=== PATIENT | female | born 1980 | race Hispanic/Latino ===

== ENCOUNTER 2019-02-09 17:58 | Emergency (ER) | payer BC ==
[~2019-02-09] VITALS: Ht 149.9 cm; Wt 59.0 kg
--- OUTSIDE RECORDS SUMMARY | 2019-02-09 18:00 | XMS REPORT | Clinical Summary ---
Author Author [facility] Address Unknown Phone Unavailable Care Team Providers Care Chute Greaser Name Role Phone Gabriela Chew MD PCP Allergies Comments Active Allergy Reactions Severity Noted Date Shellfish Containing 11/20/2017 Products Shellfish Derived 11/20/2017 Shrimp Anaphylaxis High 11/20/2017 Medications No known medications Active Problems No known active problems Immunizations Name Dates Previously Given Next Due Influenza Trivalent 07/26/2017 Tdap 08/15/2011 Family History Medical History Relation Name Comments No Known Problems Father No Known Problems Mother Relation Name Status Comments Father Alive Mother Alive Social History Date Tobacco Use Types Packs/Day Years Used Never Smoker Smokeless Tobacco: Never Used Alcohol Use Drinks/Week oz/Week Comments Yes 1 Glasses of 0.6 monthly wine Sex Assigned at Date Recorded Not on file Industry Job Start Date Occupation Not on file Not on file Not on file Travel End Travel History Travel Start No recent travel history available. Last Filed Vital Signs Not on file Plan of Treatment Health Maintenance Due Date Last Done Comments CERVICAL CANCER SCREENING 2002 INFLUENZA VACCINE 04/25/2019 07/26/2017 Results Not on fileafter 02/08/2018 Insurance Payer Benefit Subscriber ID Type Phone Address Plan / Group BCBS BCBS xxxxxxxxxxxx PPO CHOICE PPO/[employer] PPO Advance Directives Patient has advance care planning documents on file. For more information, nuvia iverson [facility] [address] [place] [phone]
[2019-02-09] MEDS ORDERED: ONDANSETRON HCL INJ 2MG/ML 2ML 2 MG/ML VIAL IV NR (18:06)
[2019-02-09] MEDS ORDERED: SODIUM CHLORIDE 0.9% 1000ML 1,000 ML IV SCH (18:15)
[2019-02-09] MEDS ORDERED: KETOROLAC TROMETHAMINE 30 MG/ML VIAL IV NR (18:15)
[2019-02-09] MEDS ORDERED: FENTANYL CITRATE/PF 100MCG/2 ML INJ IV NR (18:15)
--- NOTE | 2019-02-09 18:29 | NUR ---
[facility] CALLED AND GAVE AN HOUR ETA....
--- NOTE | 2019-02-09 18:33 | NUR ---
[facility] SENT TO [facility]
--- NOTE | 2019-02-09 20:10 | Diagnostic Imaging Report ---
EXAM: Right Upper Quadrant Ultrasound INDICATION: Right upper quadrant pain ^[id number] ^[id number] COMPARISON: None. TECHNIQUE: Transverse and longitudinal images of the right upper abdomen were obtained. FINDINGS: Liver: Size: 14.3 cm in the right midclavicular line, normal Appearance: Normal echogenicity, smooth contour Mass: No focal masses Gallbladder: Stones/Sludge: 1.6 x 1.6 x 1.2 cm echogenic shadowing mobile stone in the gallbladder lumen. Wall: 0.3 cm Appearance: No wall thickening, pericholecystic fluid or hydrops. Sonographic Abdul's Sign: Negative Bile Ducts: Intrahepatic Ducts: No dilatation Extrahepatic Ducts: Common bile duct measures 0.3 cm, no dilatation Pancreas: Visualized portions of the pancreatic neck and proximal body are normal. Kidneys: Length: Right 10.3 cm Echogenicity: Normal Collecting System: No hydronephrosis Stone: None Cyst/Mass: None Vessels: Aorta: Visualized portions are normal Inferior Vena Cava: Visualized portions are normal Main Portal Vein: 0.9 cm, normal size with hepatopetal flow. Free Fluid: No ascites or pleural effusion IMPRESSION: 1. Cholelithiasis, without sonographic evidence of cholecystitis. Signed by: Dr. Justin Sierra M.D. on 02/09/2019 8:07 PM
[2019-02-09] MEDS ORDERED: ULTRAM50 MG PO (20:16)
[2019-02-09] MEDS ORDERED: ONDANSETRON ODT8 MG PO (20:17)
[2019-02-09] MEDS ORDERED: NAPROSYN500 MG PO (20:17)
== END 2019-02-09 20:30 | disposition home or self-care (01) ==
LOC: FSED 17:58
DX: R10.13 Epigastric pain (principal); R11.2 Nausea with vomiting, unspecified; K80.70 Calculus of gallbladder and bile duct without cholecystitis without obstruction; R94.31 Abnormal electrocardiogram [ECG] [EKG]
CPT/HCPCS: 36415; 76705; 80048; 80076; 81003; 81025; 83690; 84484; 85025; 93005; 99284; J1885; J2405; J7030